=== PATIENT | male | born 1965 | race Caucasian/White ===

== ENCOUNTER 2017-02-13 17:47 | Observation (INO) | payer OTHER ==
[2017-02-13 17:56] VITALS: BMI 28.7
[2017-02-13] MEDS ORDERED: Sodium Chloride 0.9% 1,000 ML IV ONE (18:15)
--- NOTE | 2017-02-13 18:26 | C.PDOC ---
History Of Present Illness 51 year old male pt brought in via EMS, c/o dizziness and alcohol withdraw symptoms that occurred today. EMS observed bilateral hand tremors. Pt notes being sober for 2 years but started drinking again recently, but reports having a alcohol withdraw seizure 2 weeks ago. Pt notes being intoxicated now, but denies suicide ideation, fever, chills, diarrhea, vomiting, SOB, or any other complaints. Time Seen by Provider: 02/13/17 18:05 Chief Complaint (Nursing): Substance Abuse History Per: Patient History/Exam Limitations: no limitations Onset/Duration Of Symptoms: Hrs Current Symptoms Are (Timing): Still Present Suicide/Self Injury Attempted (Context): None Modifying Factor(s): Alcohol Severity: Mild Associated Symptoms: denies: Suicidal Thoughts, Suicidal Plan Past Medical History Reviewed: Historical Data, Nursing Documentation, Vital Signs Vital Signs: Last Vital Signs Temp 98.1 F 02/13/17 20:36 Pulse 90 02/13/17 23:35 Resp 18 02/13/17 23:35 BP 127/85 02/13/17 23:35 Pulse Ox 98 02/13/17 23:35 - Medical History PMH: Anxiety, HTN Denies: Diabetes, Hepatitis, HIV, Hypercholesterolemia, Mitral Valve Prolapse , Pericarditis, Peripheral Edema, Seizures, Sexually Transmitted Disease Surgical History: Appendectomy Denies: Pacemaker - [facility] Procedures ALCOHOL DETOXIFICATION (06/23/13) OTHER GROUP THERAPY (06/23/13) Family History: States: Unknown Family Hx - Social History Hx Alcohol Use: Yes Hx Substance Use: No - Immunization History Hx Tetanus Toxoid Vaccination: No Hx Influenza Vaccination: No Hx Pneumococcal Vaccination: No Review Of Systems Except As Marked, All Systems Reviewed And Found Negative. Constitutional: Positive for: Other (Alcohol withdraw, EtOH intoxication). Negative for: Fever, Chills Respiratory: Negative for: Shortness of Breath Gastrointestinal: Negative for: Nausea, Vomiting, Diarrhea Neurological: Positive for: Dizziness Psych: Negative for: Suicidal ideation Physical Exam - Physical Exam Appears: Non-toxic, No Acute Distress, Other (EtOH intoxication. Crying) Skin: Warm, Dry Head: Atraumatic, Normacephalic Eye(s): bilateral: Normal Inspection Chest: Symmetrical Cardiovascular: Rhythm Regular, No Murmur Respiratory: Normal Breath Sounds, No Rales, No Rhonchi, No Wheezing Gastrointestinal/Abdominal: Soft, No Tenderness Neurological/Psych: Oriented x3, No Normal Speech (Slurred) ED Course And Treatment - Laboratory Results Result Diagrams: 02/13/17 18:27 02/13/17 18:27 Lab Interpretation: Abnormal (ETOH 354) O2 Sat by Pulse Oximetry: 95 Pulse Ox Interpretation: Normal Medical Decision Making Medical Decision Making: Pt is noted with having high blood pressure. Plans: -Blood works -IV fluids -Reassess and disposition ED OBSERVATION Date of observation admission: 02/13/17 Time of observation admission: 21:24 - Observation admission statement Patient is being placed in observation because:: alcohol intoxication. - Goals of Observation Goals of observation are:: sobriety - Progress Note Progress Note: 02/13/17 23:20 Patient observed sleeping and in no distress. No evidence of withdrawal symptoms present. 02/14/17 00:46 Patient now awake and getting agitated. Hyperventilating and c/o carpal spasms. Given Librium po. Disposition - Disposition Disposition Time: 00:52 Condition: STABLE - Clinical Impression Clinical Impression: Alcohol intoxication - Scribe Statement The provider has reviewed the documentation as recorded by the Scribe Elayne martin All medical record entries made by the Scribe were at my direction and personally dictated by me. I have reviewed the chart and agree that the record accurately reflects my personal performance of the history, physical exam, medical decision making, and the department course for this patient. I have also personally directed, reviewed, and agree with the discharge instructions and disposition. Physician Patient Turnover Patient Signed Over To: Nahum Sy Handoff Comments: pending sobriety
[2017-02-13 18:33] LABS: BASO % 0.6 % (0.0-2.0); EOS % 0.4 % (0.0-4.0); HEMATOCRIT 50.5 % (35.0-51.0); LYMPH # 2.7 K/uL (1.0-4.3); LYMPH % 32.5 % (20.0-40.0); MEAN CELL VOLUME 96.1 fL (80.0-94.0); MEAN CORPUSCULAR HEMOGLOBIN 33.2 pg (27.0-31.0); MEAN CORPUSCULAR HGB CONC 34.6 g/dL (33.0-37.0); MEAN PLATELET VOLUME 7.5 fL (7.2-11.7); MONO # 0.6 K/uL (0.0-0.8); MONO % 7.3 % (0.0-10.0); NRBC % 0.1 % (0.0-2.0); RED CELL DISTRIBUTION WIDTH 13.5 % (11.5-14.5); WHITE BLOOD COUNT 8.2 K/uL (4.8-10.8)
[2017-02-13 18:38] LABS: CHLORIDE 95 mmol/L (98-107)
[2017-02-13 18:39] LABS: SODIUM 141 mmol/L (132-148)
[2017-02-13 18:41] LABS: ALB/GLOB RATIO 1.2 (1.0-2.1); ALKALINE PHOSPHATASE 58 U/L (38-126); AST/SGOT 51 U/L (17-59); BILIRUBIN,TOTAL 0.7 mg/dL (0.2-1.3); BLOOD UREA NITROGEN 9 mg/dL (9-20); CARBON DIOXIDE 22 mmol/L (22-30); GFR AFRICAN-AMERICAN > 60; TOTAL PROTEIN 8.6 g/dL (6.3-8.3)
[2017-02-13 18:42] LABS: ALT/SGPT 50 U/L (21-72); CALCIUM 8.4 mg/dl (8.6-10.4); GLUCOSE,RANDOM 128 mg/dL (75-110)
[2017-02-13 18:54] LABS: ALCOHOL SERUM 354 mg/dl (0-10)
[2017-02-13 20:38] VITALS: RESP 18
[2017-02-14 03:59] VITALS: BP 160/98; PULSE 113; TEMP 97.9; O2SAT 96
== END 2017-02-14 03:55 | disposition home or self-care (01) ==
LOC: C.ER 17:47 → C.9OBSV 19:22
PROVIDERS: ADMIT Emergency Medicine; ATTEND Emergency Medicine
DX: F10.229 Alcohol dependence with intoxication, unspecified (principal); F41.9 Anxiety disorder, unspecified; I10 Essential (primary) hypertension
CPT/HCPCS: 80053; 80320; 85025; 96360; 99285; G0378; J7040